=== PATIENT | male | born 1955 | race Caucasian/White ===

== ENCOUNTER → 2017-03-20 | Outpatient (CLI) | payer OTHER | LOC: CIMAGING 14:03 | PROVIDERS: ATTEND Family Medicine | DX: S22.42XA Multiple fractures of ribs, left side, initial encounter for closed fracture (principal); M19.012 Primary osteoarthritis, left shoulder; D48.0 Neoplasm of uncertain behavior of bone and articular cartilage | CPT/HCPCS: 71101-PO ==

== ENCOUNTER → 2017-05-16 | Outpatient (CLI) | payer OTHER | LOC: SBRMNEURO 20:00 | PROVIDERS: ATTEND Psychiatry & Neurology Sleep Medicine | DX: G47.39 Other sleep apnea (principal); G47.34 Idiopathic sleep related nonobstructive alveolar hypoventilation; G47.61 Periodic limb movement disorder ==

== ENCOUNTER 2017-10-14 04:36 | Observation (INO) | payer OTHER ==
[2017-10-14] MEDS ORDERED: ONDANSETRON DISINTEGRATING 4 MG TAB ONE (04:43)
[2017-10-14] MEDS ORDERED: ONDANSETRON DISINTEGRATING 4 MG TAB PO ONE (04:48)
[2017-10-14] MEDS ORDERED: LORazepam 2 MG/ML INJ IVP ONE (05:11)
[2017-10-14] MEDS ORDERED: ASPIRIN 81 MG CHEWABLE TAB PO ONE (05:11)
--- NOTE | 2017-10-14 05:16 | CPEKG ---
Heart Rate: 72 RR Interval: 833 P-R Interval: 172 QRSD Interval: 94 QT Interval: 424 QTC Interval: 465 P Grove: 58 QRS Grove: 43 T Wave Grove: 19 EKG Severity - OTHERWISE NORMAL ECG - EKG Impression: SINUS RHYTHM EKG Impression: Inferior Q in III, possible old Inferior DC EKG Impression: ATRIAL PREMATURE COMPLEX Electronically Signed By: Shni Barba 14-Oct-2017 07:24:27
[2017-10-14] MEDS ORDERED: ONDANSETRON 4 MG/2 ML VIAL ONE (05:17)
--- NOTE | 2017-10-14 05:17 | EDPHY ---
H & P Stated Complaint: neck pain Time Seen by Provider: 10/14/17 04:47 HPI/ROS: CHIEF COMPLAINT: Severe neck pain since awakening at 3:30 a.m. HISTORY OF PRESENT ILLNESS: This is a 62-year-old male with known hypertension and diabetes for the last 5 years without prior cardiac workup. Furthermore, he has no prior history of neck pain or recent exertion that might strained his neck or injure his neck. He woke from a sound sleep at 3:30 a.m. With moderate to severe progressive neck pain. During that time the neck pain is not shifted or migrated or radiated however has become more intense. The pain is across the upper shoulders mostly in the posterior aspect of the upper thoracic spine but does radiate a little bit into the left arm. Of note, he reports no pain or worsening of the pain with movement of the head or arms. Furthermore he does not have a history of instrumentation of the cervical spine, ever. P: Awoke from sleep. Not worse with movement Q: Severe pain R: Across the upper shoulders and down the left arm S: Severe T: Onset at 3:30 a.m.. Did not have an opportunity to try to decrease the pain Cardiac Risk Factors: DM: yes HTN: yes High Chol: Smoking: yes Family History: yes - father did at an elderly age of heart attack Obesity: yes SLE type illenss: yes HIV: no PE/DVT risk factors Prior DVT/PE: No Immobilization: No Splint/Cast: No Surgery, recently: No Family history of hypercoaguable syndrome: No Unilateral leg swelling: No Obesity: yes Hypertension yes Known Aortic aneurysm no Bicuspid aortic Valve no Aortic Valve disease No - no has had several echocardiograms due to remote history of rheumatic fever as a child Family Hx of aortic dieseae No Polycystic Kidney Disease no Collagen vascular disease No Aortic Regurg Murmur No Aortic instrumentation recent No Blunt trauma, recent No REVIEW OF SYSTEMS: Constitutional: No fever, no chills. No rashes Eyes: No discharge ENT: No sore throat. Cardiovascular: While the pain is across the upper thoracic posteriorly across the shoulder blades in the spinous scapula does not go into the anterior chest Respiratory: No cough, shortness of breath, or wheezing. Gastrointestinal: No nausea vomiting or diarrhea. No abdominal pain. Genitourinary: No hematuria or frequency. Musculoskeletal: No back pain. Skin: No rashes. Neurological: No headache. 10 point ROS otherwise negative Source: Patient - Personal History Current Tetanus Diphtheria and Acellular Pertussis (TDAP): Unsure - Medical/Surgical History Hx Asthma: No Hx Chronic Respiratory Disease: No Hx Diabetes: No Hx Cardiac Disease: No Hx Renal Disease: No Hx Cirrhosis: No Hx Alcoholism: No Hx HIV/AIDS: No Hx Splenectomy or Spleen Trauma: No Other PMH: diabetes,hypertension,sleep apnea,ortho surgeries - Family History Significant Family History: No pertinent family hx (Father of MS at an elderly age however mother had congestive heart failure) - Social History Smoking Status: Former smoker Alcohol Use: None Drug Use: None - Physical Exam Exam: General Appearance: Alert, market distress, rocking on the stretcher, complaining of severe pain, and diaphoretic. Afebrile. Normal phonation. No respiratory distress. Eyes: Pupils equal and round no pallor or injection. No icterus ENT, Mouth: Mucous membranes slightly dry Pharynx without erythema or exudate. TM Clear. Neck: No adenopathy. Supple. No JVD. Trachea in midline. Respiratory: There are no retractions, lungs are clear to auscultation. Chest wall: Nontender to palpation. No crepitus. Cardiovascular: Regular rate and rhythm, no murmur Abdomen: Soft and nontender, no masses, bowel sounds normal. Femoral pulses equal. Neurological: Ox3. No motor weakness. Sensation intact. Gait nl. Neck: No Torticollis. Trachea is in ML. No rashes. No muscle spasm. No bony tenderness. ROM: Minimal stiffness with full range of motion Spurling Test: Negative Axial Loading: Negative UE DTR: Symmetrical 2+ biceps and 2+ triceps UE muscle strength: Skin: Warm and dry, no rashes. Extremities: No edema. Homans sign negative. No cords. Psychiatric: Normal affect. Patient is oriented X 3. There is no agitation. Constitutional: Initial Vital Signs Temperature (C) 36.5 C 10/14/17 04:42 Heart Rate 86 10/14/17 04:42 Respiratory Rate 20 10/14/17 04:42 Blood Pressure 197/98 H 10/14/17 04:42 O2 Sat (%) 95 10/14/17 04:42 O2 Delivery Mode Room Air,Nasal Cannula O2 (L/minute) 4 Allergies/Adverse Reactions: Penicillins Allergy (Mild, Verified 10/14/17 04:41) Rash codeine Allergy (Verified 10/14/17 04:41) Home Medications: Medication Instructions Recorded Insulin Glargine [Lantus Syringe] 18 units SC HS 05/05/13 Lisinopril/Hctz 10/12.5 mg 1 tab PO DAILY 05/05/13 [Zestoretic/Prinzide] glipiZIDE [Glipizide 10 MG (RX)] 10 mg PO BID 05/05/13 metFORMIN HCL [Glucophage 1000 mg] 1,000 mg PO BIDMEAL 05/05/13 Medical Decision Making - Diagnostics EKG Interpretation: EKG: Interpreted by me contemporaneously. Rhythm: [Normal sinus rhythm.] Heart rate 72 QTc 465 QRS: [normal] Q-wave in lead 3 STT segment: [normal] T Waves: [Normal] Q waves Q-wave in lead 3. Summary: Old Q-wave inferiorly to suggest old prior inferior MS with no old EKGs available Sec EKG: EKG: Interpreted by me contemporaneously. Rhythm: [Normal sinus rhythm.] Heart rate 75 QTc 452 QRS: Old inferior Q. Normal R-wave progression STT segment: [normal] T Waves: [Normal] Q waves lead 3 Summary: [Normal Ekg] Imaging Results: Chest x-ray: Portable technique Interpreted by [me, contemporaneously]. Films [viewed] by me on the PACS system. Normal mediastinum. Normal lung haley. No effusions. Normal chest. Sensitivity compromised secondary body habitus Imaging: Discussed imaging studies w/ call center recruiter Radiologist ED Course/Re-evaluation: Upon initial evaluation it was clear that there is no suggestion this was musculoskeletal in origin. He had full range of motion and no neuro deficits. Further, there is no precipitating event. While interviewing him he started complaining of"fading out"whereby he was more and more drenched in diaphoresis and became a little bit more pale. At that point his heart rate was 34 though remained as a sinus Antolin. He was laid down into the stretcher and with the feet elevated and color improved. He was transferred to the Trauma Room immediately. IV was status step i-STAT and he was given a titration of morphine 4 mg and Ativan 0.5 As well as 324 mg of chewable aspirin. Within the next 10 min his color improved markedly was no longer diaphoretic and he said the pain was moderately better. It is now only moderately severe. He is given additional 2 mg of morphine. Initial EKG without acute changes though with Q-wave inferiorly in III. No old EKGs available Single PAC. Portable chest x-ray as read by me was negative. Suboptimal technique due to body habitus. Second EKG was unchanged, approx 30 min after first was unchanged, QA persists in III. In light of the fact of the negative troponin and a suspicious history with high risk factors I will be discussing the case with the [facility] hospitalist. However initially he was sent for a CTA of the aortic arch with runoff. CTA of the chest was negative by my read for dissection though there was aortic calcification. I contacted the hospitalist, Benitez, and arranged for admission to the hospital. Subsequently, formal reading of the CT of the chest suggests: Moderate aortic calcification Normal aortic arch No evidence of dissection Some calcification of the coronaries, in particular of the LAD My SCORE HEART H = Hx High 2 E = EKG Nl 0 A = Age 45-64 1 R Risk Factors 3 or more 2 HTN Smoking DM Family Hx Obesity T = Troponin Not detected 0 Results: 5 Arrangements were made for an ambulance to transfer via ALS to [facility]. Differential Diagnosis: Differential diagnosis includes but is not limited to the following: ACS, myocardial infarction, pneumothorax, pleurisy, pulmonary embolus, CHF, Pneumonia, bronchospasm, Asthma, anxiety, muscle strain. Critical Care Time: I spent a total of [60] minutes of critical care time in obtaining history, performing a physical exam, bedside monitoring of interventions, collecting and interpreting tests and discussion with consultants but not including time spent performing procedures. - Data Points Laboratory Results: Laboratory Results 10/14/17 05:10 10/14/17 05:10 10/14/17 10/14/17 10/14/17 05:10 05:10 05:10 WBC 8.29 10^3/uL 10^3/uL (3.80-9.50) RBC 5.66 10^6/uL 10^6/uL (4.40-6.38) Hgb 16.8 g/dL g/dL (13.7-17.5) Hct 50.6 % % (40.0-51.0) MCV 89.4 fL fL (81.5-99.8) MCH 29.7 pg pg (27.9-34.1) MCHC 33.2 g/dL g/dL (32.4-36.7) RDW 13.5 % % (11.5-15.2) Plt Count 230 10^3/uL 10^3/uL (150-400) MPV 10.9 fL fL (8.7-11.7) Neut % (Auto) 58.5 % % (39.3-74.2) Lymph % (Auto) 25.1 % % (15.0-45.0) [place] % (Auto) 10.9 % % (4.5-13.0) Eos % (Auto) 4.3 % % (0.6-7.6) Baso % (Auto) 0.8 % % (0.3-1.7) Nucleat RBC Rel Count 0.0 % % (0.0-0.2) Absolute Neuts (auto) 4.85 10^3/uL 10^3/uL (1.70-6.50) Absolute Lymphs (auto) 2.08 10^3/uL 10^3/uL (1.00-3.00) Absolute Monos (auto) 0.90 10^3/uL H 10^3/uL (0.30-0.80) Absolute Eos (auto) 0.36 10^3/uL 10^3/uL (0.03-0.40) Absolute Basos (auto) 0.07 10^3/uL 10^3/uL (0.02-0.10) Absolute Nucleated RBC 0.00 10^3/uL 10^3/uL (0-0.01) Immature Gran % 0.4 % % (0.0-1.1) Immature Gran # 0.03 10^3/uL 10^3/uL (0.00-0.10) D-Dimer < 0.27 ug/mLFEU ug/mLFEU (0.00-0.50) Sodium 138 mEq/L mEq/L (135-145) Potassium 4.1 mEq/L mEq/L (3.3-5.0) Chloride 101 mEq/L mEq/L (97-110) Carbon Dioxide 24 mEq/l mEq/l (22-31) Anion Gap 13 mEq/L mEq/L (8-16) BUN 29 mg/dL H mg/dL (7-23) Creatinine 0.8 mg/dL mg/dL (0.7-1.3) Estimated GFR > 60 Glucose 199 mg/dL H mg/dL (70-100) Calcium 9.8 mg/dL mg/dL (8.5-10.4) Troponin I < 0.012 ng/mL ng/mL (0.000-0.034) NT-Pro-B Natriuret Pep 41 pg/mL pg/mL (0-125) Medications Given: Discontinued Medications Aspirin (Aspirin) 324 mg PO EDNOW ONE Stop: 10/14/17 05:12 Last Admin: 10/14/17 05:19 Dose: 324 mg Lorazepam (Ativan Injection) 0.5 mg IVP EDNOW ONE Stop: 10/14/17 05:12 Last Admin: 10/14/17 05:20 Dose: 0.5 mg Morphine Sulfate (Morphine) 4 mg IVP EDNOW ONE Stop: 10/14/17 05:13 Last Admin: 10/14/17 05:21 Dose: 4 mg Morphine Sulfate (Morphine) 2 mg IVP EDNOW ONE Stop: 10/14/17 05:48 Last Admin: 10/14/17 05:50 Dose: 2 mg Ondansetron HCl (Zofran Odt) 4 mg PO EDNOW ONE Stop: 10/14/17 04:49 Last Admin: 10/14/17 04:52 Dose: 4 mg Ondansetron HCl (Zofran) 4 mg IVP EDNOW ONE Stop: 10/14/17 05:23 Last Admin: 10/14/17 05:23 Dose: 4 mg Departure - Departure Disposition: [facility] Inpatient Acute Clinical Impression: Acute chest pain, Bradycardia Condition: Fair Additional Instructions: Proceed straight to [facility] by ambulance Referrals: Patient,NotPresent [Primary Care Provider] - As per Instructions
[2017-10-14 05:21] LABS: PLATELET COUNT 230 10^3/uL (150-400)
[2017-10-14] MEDS ORDERED: ONDANSETRON 4 MG/2 ML VIAL IVP ONE (05:22)
[2017-10-14] MEDS ORDERED: IOPAMIDOL (ISOVUE 370) 100 ML BTL IV ONE (05:52)
--- NOTE | 2017-10-14 05:57 | CPEKG ---
Heart Rate: 75 RR Interval: 800 P-R Interval: 168 QRSD Interval: 102 QT Interval: 404 QTC Interval: 452 P Greenfield: 52 QRS [place]: 42 T Wave [place]: 22 EKG Severity - NORMAL ECG - EKG Impression: SINUS RHYTHM EKG Impression: Inferior Q in III, possible old Inferior CT Electronically Signed By: Shin Barba 14-Oct-2017 07:24:06
[2017-10-14] MEDS ORDERED: ONDANSETRON 4 MG/2 ML VIAL IVP PRN (09:16)
[2017-10-14] MEDS ORDERED: ACETAMINOPHEN 325 MG TAB PO PRN (09:16)
[2017-10-14] MEDS ORDERED: ONDANSETRON DISINTEGRATING 4 MG TAB PO PRN (09:16)
[2017-10-14] MEDS ORDERED: ZOLPIDEM TARTRATE 5 MG TAB PO PRN (09:16)
[2017-10-14] MEDS ORDERED: NS 1,000 ML IV SCH (09:30)
--- NOTE | 2017-10-14 10:45 | PDGENHP ---
History and Physical History and Physical: CC: Neck pain HISTORY: This patient awakened at 3 o'clock this morning with pain in the posterior neck. This is at the mid to lower cervical spine area, associated with significant increase in pain with movement of his neck or trunk, along with severe stiffness in the muscles of the posterior neck and trapezius muscles. The pain persisted even after taking some muscle relaxer and anti- inflammatory and he was concerned about what was causing it so came to the ER. He was seen at the ER in [place] initially. His evaluation there was partly triggered by the fact that he was somewhat diaphoretic and nauseous as he arrived there with high blood pressures. He had a CT angio to assess for aortic dissection which was not seen. He had EKGs and troponins which were normal but he was sent here for further assessment to rule out acute coronary syndrome. The patient has had no real anginal sounding symptoms, no pleuritic chest pain, no shortness of breath, no cough or fevers. He does have multiple risk factors including diabetes hypertension obesity and family history. That the patient is fairly sedentary overall but does some core muscle type exercises on a daily basis. He has had no trouble doing those exercises recently. He really does not do any significant aerobic type activity ROS: A comprehensive 10 system review revealed no other significant findings PAST MEDICAL HISTORY: Type 2 diabetes mellitus for 10 years Hypertension Obesity Obstructive sleep apnea, using CPAP at home FAMILY MEDICAL HISTORY: Father of a heart attack in his 70s, mother had heart failure but lived to SOCIAL HISTORY: lives with his Still working an office job MEDICATIONS: The patients list has been reconciled by our clinical pharmacist in the EMR. I have reviewed the list and ordered appropriate medicines. PHYSICAL EXAMINATION: Vital Signs: He is hypertensive both diastolic and systolic in the moderate range, however other vitals are normal and no fever Scruff Worker: All sinus rhythm Examination: General: Quite obese, alert, oriented, good mentation, relaxed Skin: warm, dry, good color, no rash HEENT: normal Neck: no mass or jvd Resps: relaxed Lungs: clear breath sounds Heart: regular, no murmur Abdomen: soft, nondistended, nontender, +BS, no mass Upper Extremities: normal Lower Extremities: Very minimal edema is present at both ankles with mild pitting; difficult to tell if this is chronic or new No Bleeding or bruising Neurologic: normal speech/language, normal furnace repairer, no focal weakness IV site: looks normal LABORATORY DATA: 1st troponin is negative The blood sugar in the 190s but otherwise chemistry unremarkable CBC is normal D-dimer is normal RADIOLOGY STUDIES: Chest x-rays done in the ER and I reviewed the images from that, this is a single view AP x-ray that is mostly remarkable for his obesity but no other specific findings, the obesity rendering the images a little difficult to interpret through this particular software 12 LEAD EKG, 2 tracings done in the ER both reviewed and interpreted by me: Sinus rhythm with no concerning abnormalities of the QRS or ST and T-waves. The P waves are showing possible left atrial abnormality ASSESSMENT: # neck pain which is strongly suggestive of a musculoskeletal pain based on his description # coronary artery disease is noted with calcifications in the LAD and other coronaries along with calcifications of the aorta, as seen on CT angio # multiple risk factors for vascular disease including diabetes, obesity, hypertension, family history, and sleep apnea # type 2 diabetes mellitus currently uncontrolled sugar in the 190s # moderately elevated blood pressure today though states that his blood pressures usually very well controlled, however only has not measured at doctor' s visits never under other circumstances PLANS: -will observe here on the cardiac unit -will repeat troponins -I think this symptom that he has does not sound much to me like a coronary syndrome but says he has notable risk factors and has demonstrated coronary disease on CT angio, will do a risk stratification protocol with a treadmill stress test -follow blood pressure here if it does not resolve will add additional treatment for that -continue follow sugars while he is here and treat as indicated -will use topical heat muscle relaxers and anti-inflammatories for his neck pain
[2017-10-14] MEDS ORDERED: LISINOPRIL/HCTZ 10/12.5 MG 1 EA TAB PO SCH ×2 (11:00→14:15)
[2017-10-14] MEDS ORDERED: glipiZIDE 10 MG TAB PO SCH (11:00)
[2017-10-14] MEDS ORDERED: metFORMIN HCL 500 MG TAB PO SCH (11:00)
[2017-10-14 11:30] VITALS: BP 144/87
[2017-10-14] MEDS ORDERED: CETIRIZINE 10 MG TAB PO PRN (13:56)
--- NOTE | 2017-10-14 14:08 | PDDCSUM ---
Discharge Summary Discharge Summary: DISCHARGE DIAGNOSES: -neck pain, musculoskeletal etiology, resolved -atherosclerosis of coronary arteries and aorta noted on CT angiography of chest -hypertension with higher blood pressure than usual here at this time -type 2 diabetes mellitus -sleep apnea using CPAP at home PROCEDURES: CT angio chest HOSPITAL COURSE SUMMARY: This patient presented to the ER with an episode of neck pain, consisting of a focal spine pain based at the low cervical spine and associated with significant muscle tightness and spasm in the posterior neck and trapezius areas. This had gone on for hours through the morning today but was suddenly completely resolved at 1 point here when he twisted his neck and felt a sudden pop in the neck with complete release of the pain and all of the muscular spasm. There was no symptom or exam finding to suggest nerve impingement in the spine. Is felt this is a musculoskeletal spine pain that is probably mostly resolved but he may have some ongoing muscle spasm for a bit. The patient is at high risk for vascular disease with diabetes, hypertension, obesity, family history, and sleep apnea. In the ER there was concern for possible vascular episode acutely. A CT angio was done of the chest which did not show any evidence of thoracic aorta aneurysm or dissection. However calcifications of the aorta and coronaries were noted. His initial EKG and troponin did not reveal evidence of infarction or ischemia, but it was felt the ER that he should be observed and tested further for possible acute coronary syndrome. At the time of his evaluation here none of his symptoms really sounded like angina. There is no dyspnea. He had no arrhythmia or heart failure. He did have a high blood sugar a high blood glucose. At this point as the patient is symptom free, has no arrhythmia and no heart failure, and has 2-troponins and 2 nonischemic EKGs. It is felt that he is stable for discharge from the hospital and will set up an outpatient stress test for further risk stratification. He will call [facility] to set up a stress test to be done in the next week or 2. I have given his name to Dr. Douglas Soares to facilitate scheduling of that test. Regarding his risk factors, the patient has started using CPAP for sleep apnea just recently and finds it very helpful and is very happy with it. His LDL has been measured twice this year both times in the 50s. He is working actively on management of his blood sugar and blood pressure. He has started regular exercise and made some improvements in his diet. I lauded his efforts and encouraged to him continue them along with close follow up with his doctors.. PENDING TEST RESULTS: None MEDICATION CHANGES: None (the patient is instructed to not take his metformin and till SaturdayOctober 16 due to IV contrast given today) FOLLOW-UP PLAN: He will contact [facility] at [phone] to set up treadmill stress test, and I have given his name to Dr. Soares to facilitate setting that up
[2017-10-14] MEDS ORDERED: LISINOPRIL/HCTZ 20/12.5MG 1 EA TAB PO SCH (14:15)
[2017-10-14] MEDS ORDERED: METHOCARBAMOL 500 MG TAB PO SCH (16:00)
[2017-10-14] MEDS ORDERED: INSULIN GLARGINE 100 UNITS/ML UNIT SC SCH (21:00)
[2017-10-14] MEDS ORDERED: INSULIN GLARGINE 100 UNITS/ML SYRINGE SC SCH (21:00)
[2017-10-14] MEDS ORDERED: INSULIN GLARGINE HUM REC ANLOG 18 UNIT SC SCH (21:00)
[2017-10-14] MEDS ORDERED: [UNRECOGNIZED DRUG - OTHER] SC SCH (21:00)
[2017-10-15] MEDS ORDERED: CHOLECALCIFEROL VIT D3 1,000 UNITS TAB PO SCH (09:00)
[2017-10-15] MEDS ORDERED: ENOXAPARIN 40 MG/0.4 ML SYR SC SCH (09:00)
== END 2017-10-14 16:00 | disposition home or self-care (01) ==
LOC: CED 04:36 → CEDHOLD 06:48 → F2W 08:50
PROVIDERS: ADMIT Student in an Organized Health Care Education/Training Program; ATTEND Student in an Organized Health Care Education/Training Program
DX: M54.2 Cervicalgia (principal); I25.10 Atherosclerotic heart disease of native coronary artery without angina pectoris; I70.0 Atherosclerosis of aorta; I10 Essential (primary) hypertension; E11.65 Type 2 diabetes mellitus with hyperglycemia; Z79.84 Long term (current) use of oral hypoglycemic drugs; G47.33 Obstructive sleep apnea (adult) (pediatric); E66.09 Other obesity due to excess calories; Z68.35 Body mass index [BMI] 35.0-35.9, adult; Z87.891 Personal history of nicotine dependence
CPT/HCPCS: 71045; 71275; 74174; 93005; G0378; 80048-PO; 83880-PO; 84484-PO; 85025-PO; 85378-PO; 96374; J1815; J2060; J2270; J2405; Q9967

== ENCOUNTER → 2018-03-13 | Outpatient (CLI) | payer OTHER | LOC: CIMAGING 09:00 | PROVIDERS: ATTEND Family Medicine | DX: M50.31 Other cervical disc degeneration, high cervical region (principal); M48.02 Spinal stenosis, cervical region; I70.8 Atherosclerosis of other arteries | CPT/HCPCS: 72052-PO ==